=== PATIENT | female | born 1990 | race African-American/Black ===

== ENCOUNTER 2016-11-29 15:31 | Emergency (ER) | payer OTHER ==
[~2016-11-29] VITALS: Ht 160 cm; Wt 61.4 kg
[2016-11-29 15:39] VITALS: BP 128/82; PULSE 72; RESP 16; O2SAT 98
--- NOTE | 2016-11-29 16:11 | ED.REPORT ---
HPI-Abd Pain F Under 41 Date of Service Nov 29, 2016 ED Provider: Hui Hinson History of Present Illness: right upper abd pain since Tuesday am. Went to [place] [facility] this am at 4 told she had abd pain, no imaging done, given pain medication. Delivered 11/06/2016 by normal vaginal delivery. OB is in [place]. Primary care is no one [facility] No nausea or vomiting. worse with eating. Nursing Notes Stated Complaint: R SIDE PAIN Chief Complaint: Female Abdominal Pain Nursing Notes Reviewed: Yes Allergies: Coded Allergies: No Known Allergies (Unverified , 11/29/16) General Time Seen by MD: 15:48 Chief Complaint Abdominal pain Hx Obtained From: Patient Sudden in Onset?: No Location: : RUQ Past Medical History Past Medical History Denies: Asthma Past Surgical History cleft lip and palate surgery, ear surgery Reports: (2.5 years ago 2014) Smoking History Current Every Day Smoker (10 cig a day for 8 years) Social History Alcohol Use: Denies alcohol use Drug Use: THC Occupation single lives with parents Ambulatory Status Independent Review of Systems Basic Review of Systems Eyes: Vision NL, No discharge Allergy / Immune: No allergy Psychiatric: Normal thought content Physical Exam Initial Vital Signs Vital Signs (First) Date Time Temp Pulse Resp B/P Pulse Ox O2 Delivery O2 Flow Rate FiO2 11/29/16 15:39 37.2 72 16 128/82 98 11/29/16 18:23 Room Air Initial VS: Reviewed, Vital signs normal Head / Eyes: Atraumatic, Normocephalic, PERRL ENT: Mucous membranes moist, Conjunctiva normal, No scleral icterus Neck: Supple, Non-tender, Full range of motion Lymphatic: No lymphadenopathy Extremities: Vascular intact, Neuro intact, No swelling, No tenderness Skin: Warm, Dry, No cyanosis Neurologic: Alert, Oriented, Nonfocal Psychiatric: Mood/affect normal, Behavior normal, Normal thought content General/Constitutional: Awake, Alert, No acute distress, Well appearing, Well developed, Well hydrated, Well nourished, Cooperative, Not toxic appearing Respiratory / Chest: Atraumatic, Breath sounds NL, Breath sounds = bilat, No respiratory distress, No rales, No rhonchi, No wheezing, No retractions, No stridor, No chest tenderness, No chest wall deformity, No crepitus Cardiovascular: Heart rate NL, Regular rhythm, Heart sounds NL, No gallop Abdomen: Atraumatic, Soft Tenderness/Guarding/Rebound: Positive: Tender RUQ... (Moderate) Back: Atraumatic, Inspection NL, Full range of motion Head / Eyes: Atraumatic, Normocephalic, PERRL, EOMI ENT: Atraumatic, Airway patent, Mucous membranes moist, Pharynx NL Skin: Atraumatic, Color NL, No rash Interpretation & Diagnostics Interpretation & Diagnostics: PROCEDURE: US ABDOMEN, LIMITED ([id number]) INDICATIONS: CHECK GALLBLADDER TECHNIQUE: Real-time focused scanning was performed of the abdomen, with image documentation. COMPARISON: None. FINDINGS: Bladder is unremarkable. No gallstone seen. No wall thickening pericholecystic fluid or sonographic Dominguez sign. Common hepatic duct measures 1.8 mm in diameter. The common bile duct measures 2.5 mm diameter. Right kidney is also unremarkable. IMPRESSION: Normal appearance of the gallbladder. Dictated by: Kristopher Bender M.D. on 11/29/2016 at 18:47 Approved by: Kristopher Bender M.D. on 11/29/2016 at 18:47 Lab Results Interpretation Result Diagram: 11/29/16 1630 11/29/16 1630 Test 11/29/16 16:02 11/29/16 16:30 Urine Color Yellow (YELLOW) Urine Appearance Hazy (CLEAR,HAZY) Urine pH 6.0 (5.0-8.0) Urine Specific Odon >1.030 (1.003-1.035) Urine Protein Tracemg/dL (NEG,TRACE) Urine Glucose (UA) Negativemg/dL (NEGATIVE) Urine Ketones Negativemg/dL (NEGATIVE) Urine Occult Blood Small (NEGATIVE) Urine Nitrite Negative (NEGATIVE) Urine Bilirubin Negative (NEGATIVE) Urine Urobilinogen Normalmg/dL (NORMAL) Urine Leukocyte Esterase Negative (NEGATIVE) Urine RBC 3-10/hpf (0-2) Urine WBC 0-5/hpf (0-5) Urine Epithelial Cells Many/hpf (NONE-MOD) Urine Crystals None seen (NONE SEEN) Urine Bacteria Few/hpf (NONE-FEW) Urine Hyaline Casts Occasional/lpf (NONE) Urine Granular Casts None seen (NONE SEEN) Urine Waxy Casts None seen (NONE SEEN) Urine Red Blood Cell Casts None seen (NONE SEEN) Urine White Blood Cell Casts None seen (NONE SEEN) Urine Mucus Present (None Seen) Urine Trichomonas None seen (NONE SEEN) Urine Yeast None (NONE SEEN) Urinalysis Comment None Urine Culture Reflexed Not indicated White Blood Count 10.8th/mm3 (3.8-10.1) Red Blood Count 3.80mil/mm3 (3.90-5.20) Hemoglobin 12.0g/dL (12.0-15.6) Hematocrit 35.6% (35.0-46.0) Mean Corpuscular Volume 93.7fL (81-100) Mean Corpuscular Hemoglobin 31.6pg (27.0-35.0) Mean Corpuscular Hemoglobin Concent 33.7% (32.0-37.0) Red Cell Distribution Width 12.2% (12.3-15.4) Platelet Count 461bil/L (150-400) Neutrophils (%) (Auto) 53.8% (40-74) Lymphocytes (%) (Auto) 29.6% (14-46) Monocytes (%) (Auto) 11.3% (4-12) Eosinophils (%) (Auto) 4.3% (0-5) Basophils (%) (Auto) 0.6% (0-3) Sodium Level 138mEq/L (134-144) Potassium Level 3.1mEq/L (3.5-5.2) Chloride Level 100mEq/L (97-108) Carbon Dioxide Level 22mmol/L (18-29) Blood Urea Nitrogen 6mg/dL (6-20) Creatinine 0.60mg/dL (0.57-1.00) Estimat Glomerular Filtration Rate 174mL/min (>59) Glucose Level 90mg/dL (60-99) Calcium Level 8.9mg/dL (8.5-10.1) Magnesium Level 1.9mg/dL (1.6-2.6) Total Bilirubin 0.2mg/dL (0.0-1.2) Aspartate Amino Transf (AST/SGOT) 16U/L (0-50) Alanine Aminotransferase (ALT/SGPT) 8U/L (0-32) Alkaline Phosphatase 89U/L (25-150) Total Protein 7.3g/dL (6.4-8.4) Albumin 3.6g/dL (3.4-5.0) Amylase Level 41U/L (28-100) Lipase 26U/L (13-60) Hold Powell Top Tube Received (Received) X-Ray Chest Interpretation Chest Xray Interpretation: DURE: X-RAY CHEST, TWO VIEWS ([id number]) INDICATIONS: pneumonia TECHNIQUE: 2 views of the chest were acquired. COMPARISON: None. FINDINGS: Surgical changes and devices: None. Lungs and pleura: No pleural effusions or pneumothorax. Lungs are clear. Mediastinum: Mediastinal contours are normal. Heart size is normal. Bones and chest wall: No suspicious bony abnormalities. Soft tissues appear unremarkable. IMPRESSION: No acute disease Dictated by: Kristopher Bender M.D. on 11/29/2016 at 17:31 Approved by: Kristopher Bender M.D. on 11/29/2016 at 17:34 CT Abd / Pelvis Interpretation NDICATIONS: right upper quadrant pain TECHNIQUE: Noncontrast 5 mm thick sections acquired from the diaphragms to the symphysis. 5 mm thick coronal and sagittal reformats were then performed. For radiation dose reduction, the following was used: automated exposure control, adjustment of mA and/or kV according to patient size. COMPARISON: None. FINDINGS: Image quality: Excellent. Lung bases: Lung bases are clear. Heart size is normal. Urinary system: Both kidneys are normal in size. No kidney stones. No hydronephrosis or perinephric fat stranding. Both ureters appear non-dilated throughout their expected courses. Bladder wall thickness is normal; no calcified bladder stones. Other solid organs: Liver and spleen are normal in size. Gallbladder appears within normal limits without calcified gallstones. Pancreas is normal in contours. No adrenal nodules. Peritoneum and bowel: Unenhanced bowel loops demonstrate normal wall thickness and caliber. There are a few scattered small bowel air-fluid levels noted without abnormal dilatation. The appendix is partially visualized. No definite evidence of appendicitis. There is a small amount of free fluid in the pelvis. Nodes and vessels: No retroperitoneal or mesenteric adenopathy by size criteria. Aorta and inferior vena cava are normal in caliber. Abdominal wall: No ventral hernias. Pelvis: No free pelvic fluid. No inguinal hernias or adenopathy. Bones: No suspicious bony lesions. No vertebral body compression fractures. IMPRESSION: 1. No evidence of nephrolithiasis or obstructive uropathy. 2. Partially visualized appendix without definite evidence of appendicitis. 3. Scattered small bowel air-fluid levels are nonspecific and may reflect a gastroenteritis. 4. Small amount of pelvic free fluid appears within physiologic limits. Dictated by: Sadiq Fontana M.D. on 11/29/2016 at 16:55 Approved by: Sadiq Fontana M.D. on 11/29/2016 at 17:00 Re-Eval/Medical Decision Med Decision/Clinical Course Med Decision/Clinical Course: 26 year old female presents for evualation of right upper quadrant pain since Tuesday. Labs are normal including urine. CT KUB is normal, no sign of stone or kidney pathology. Chest x-ray is negative for any sign of pneumonia and US is negative for any visible gall bladder pathology. Patient with good response to toradol. Pain may be ball bladder colic, referred to primary care and provided low fat diet Discharge & Departure Primary Impression: Abdominal pain Abdominal location: right upper quadrant Qualified Code: R10.11 - Right upper quadrant pain Disposition: Home Patient Instructions: HIDA Scan (GEN), Low Fat Diet (ED) Additional Instructions: Your labs are normal including the urine. The CT KUB looks good, no sign of stone or kidney issues. The chest x-ray looks good, no sign of pneumonia. The US looks good, no sign of gall bladder wall thickening or gall stones. It may still be a gall bladder issue caused by dsyfunction of the gall bladder. Avoid high fat foods. Eat a low fat diet to see if that decreases the pain. You are being provided a list of low fat foods. As a trial, you can have a pizza after having the low fat diet, if that makes it worse, it can be the dsyfunction of the gall bladder. Use ibuprofen 800 mg up to 3 times a day for 5 days to help decrease the pain. Please follow with primary care. Referrals: OTHER,PHYSICIAN EDSupervising Provider for APC: Wayne Barrios MD copies to: OTHER,PHYSICIAN Hui Hinson Nov 29, 2016 16:11
[2016-11-29 16:25] LABS: APPEARANCE,URINE HAZY (CLEAR,HAZY); COLOR,URINE YELLOW (YELLOW); OCCULT BLOOD,URINE SMALL (NEGATIVE); UROBILINOGEN,URINE NORMAL (NORMAL)
[2016-11-29 16:39] LABS: BASOPHILS % (AUTO) 0.6 % (0-3); EOSINOPHILS % (AUTO) 4.3 % (0-5); MONOCYTES % (AUTO) 11.3 % (4-12); Mean Corpuscular Hemoglobin 31.6 pg (27.0-35.0); Mean Corpuscular Volume 93.7 fL (81-100); NEUTROPHILS % (AUTO) 53.8 % (40-74); Platelet Count 461 bil/L (150-400)
--- NOTE | 2016-11-29 17:02 | DRSVH ---
PROCEDURE: CT KUB ([id number]) INDICATIONS: right upper quadrant pain TECHNIQUE: Noncontrast 5 mm thick sections acquired from the diaphragms to the symphysis. 5 mm thick coronal an d sagittal reformats were then performed. For radiation dose reduction, the following was used: aut omated exposure control, adjustment of mA and/or kV according to patient size. COMPARISON: None. FINDINGS: Image quality: Excellent. Lung bases: Lung bases are clear. Heart size is normal. Urinary system: Both kidneys are normal in size. No kidney stones. No hydronephrosis or perinephri c fat stranding. Both ureters appear non-dilated throughout their expected courses. Bladder wall th ickness is normal; no calcified bladder stones. Other solid organs: Liver and spleen are normal in size. Gallbladder appears within normal limits w ithout calcified gallstones. Pancreas is normal in contours. No adrenal nodules. Peritoneum and bowel: Unenhanced bowel loops demonstrate normal wall thickness and caliber. There a re a few scattered small bowel air-fluid levels noted without abnormal dilatation. The appendix is p artially visualized. No definite evidence of appendicitis. There is a small amount of free fluid in the pelvis. Nodes and vessels: No retroperitoneal or mesenteric adenopathy by size criteria. Aorta and inferior vena cava are normal in caliber. Abdominal wall: No ventral hernias. Pelvis: No free pelvic fluid. No inguinal hernias or adenopathy. Bones: No suspicious bony lesions. No vertebral body compression fractures. IMPRESSION: 1. No evidence of nephrolithiasis or obstructive uropathy. 2. Partially visualized appendix without definite evidence of appendicitis. 3. Scattered small bowel air-fluid levels are nonspecific and may reflect a gastroenteritis. 4. Small amount of pelvic free fluid appears within physiologic limits. Dictated by: Sadiq Fontana M.D. on 11/29/2016 at 16:55 Approved by: Sadiq Fontana M.D. on 11/29/2016 at 17:00
[2016-11-29 17:06] LABS: Magnesium 1.9 mg/dL (1.6-2.6)
--- NOTE | 2016-11-29 17:36 | DRSVH ---
PROCEDURE: X-RAY CHEST, TWO VIEWS ([id number]) INDICATIONS: pneumonia TECHNIQUE: 2 views of the chest were acquired. COMPARISON: None. FINDINGS: Surgical changes and devices: None. Lungs and pleura: No pleural effusions or pneumothorax. Lungs are clear. Mediastinum: Mediastinal contours are normal. Heart size is normal. Bones and chest wall: No suspicious bony abnormalities. Soft tissues appear unremarkable. IMPRESSION: No acute disease Dictated by: Kristopher Bender M.D. on 11/29/2016 at 17:31 Approved by: Kristopher Bender M.D. on 11/29/2016 at 17:34
[2016-11-29 18:23] VITALS: BP 110/71; PULSE 71; RESP 15; O2SAT 98
--- NOTE | 2016-11-29 18:49 | DRSVH ---
PROCEDURE: US ABDOMEN, LIMITED ([id number]) INDICATIONS: CHECK GALLBLADDER TECHNIQUE: Real-time focused scanning was performed of the abdomen, with image documentation. COMPARISON: None. FINDINGS: Bladder is unremarkable. No gallstone seen. No wall thickening pericholecystic fluid or son ographic Dominguez sign. Common hepatic duct measures 1.8 mm in diameter. The common bile duct measures 2.5 mm diameter. Right kidney is also unremarkable. IMPRESSION: Normal appearance of the gallbladder. Dictated by: Kristopher Bender M.D. on 11/29/2016 at 18:47 Approved by: Kristopher Bender M.D. on 11/29/2016 at 18:47
== END 2016-11-29 18:09 | disposition home or self-care (01) ==
LOC: SED 15:31
DX: O99.89 Other specified diseases and conditions complicating pregnancy, childbirth and the puerperium (principal); R10.11 Right upper quadrant pain; O99.335 Smoking (tobacco) complicating the puerperium; F17.200 Nicotine dependence, unspecified, uncomplicated
CPT/HCPCS: 36415; 71020; 74176; 76705; 80053; 81000; 81025; 82150; 83690; 83735; 85025; 96372; 99285; J1885